=== PATIENT | female | born 1950 | race Caucasian/White ===

== ENCOUNTER 2017-08-06 19:53 | Emergency (ER) | payer MEDICAID ==
[~2017-08-06] VITALS: Ht 160 cm; Wt 111.1 kg
--- NOTE | 2017-08-06 20:00 | NUR ---
TO BED 13 A 66 YO FEMALE PATIENT [id number] "PER FAMILY NEAR SYNCOPE EPISODE." PATIENT IS AAOX3, NAD NOTED. VSS. SKIN WARM AND DRY. PLACED ON CARDIAC AND VS MONITORING. SAFETY MEASURES IN PLACE.
--- NOTE | 2017-08-06 20:25 | NUR ---
started a saline lock on the lac g20, blood drawn and sent to lab.
[2017-08-06 20:28] LABS: BASOPHILS # (AUTO) 0.1 /CMM (0.0-0.2); BASOPHILS % (AUTO) 1.1 % (0.0-2.0); EOSINOPHILS # (AUTO) 0.1 /CMM (0.0-0.7); EOSINOPHILS % (AUTO) 1.2 % (0.0-6.0); HEMATOCRIT 41 % (33-45); HEMOGLOBIN 14.3 g/dL (11.5-14.8); LYMPHOCYTES % (AUTO) 20.3 % (20.0-44.0); MEAN CORPUSCULAR HEMOGLOBIN 31 PG (26.0-33.0); MEAN CORPUSCULAR HGB CONC 35 g/dl (31.0-36.0); MEAN CORPUSCULAR VOLUME 90 fL (82-100); MONOCYTES # (AUTO) 0.6 /CMM (0.1-1.30); MONOCYTES % (AUTO) 6.3 % (2.0-12.0); NEUTROPHILS % (AUTO) 71.1 % (43.0-81.0); PLATELET COUNT (AUTO) 234 /CMM (150-450); RDW COEFFICIENT OF VARIATION 14.3 (11.5-15.0); RED BLOOD CELL COUNT(AUTO) 4.54 MIL/uL (4.0-5.2); WHITE BLOOD COUNT (AUTO) 9.8 K/uL (4.3-11.0)
[2017-08-06 20:43] LABS: CALCIUM, SERUM 9.3 mg/dL (8.5-10.1); CARBON DIOXIDE 31 mmol/L (21-32); CHLORIDE 103 mmol/L (98-107); CREATININE 0.9 mg/dL (0.6-1.3); GLUCOSE 93 mg/dL (74-106); POTASSIUM 3.7 mmol/L (3.5-5.1); SODIUM SERUM 141 mmol/L (136-145); UREA NITROGEN, BLOOD 19 mg/dL (7-18)
[2017-08-06 20:45] LABS: INR 0.95 (0.85-1.15)
[2017-08-06 20:48] LABS: TROPONIN I < 0.017 ng/mL (0.00-0.056)
[2017-08-06 20:52] LABS: ALANINE AMINOTRANSFERASE 20 U/L (12-78); ALBUMIN 3.7 g/dL (3.4-5.0); ALKALINE PHOSPHATASE 51 U/L (46-116); ASPARTATE AMINOTRANSFERASE 17 U/L (15-37); BILIRUBIN,DIRECT 0.1 mg/dL (0.0-0.2); BILIRUBIN,TOTAL 0.4 mg/dL (0.2-1.0); TOTAL PROTEIN, SERUM 7.6 g/dL (6.4-8.2)
--- NOTE | 2017-08-06 21:35 | NUR ---
IV removed. Catheter intact and site benign. Pressure and 4x4 applied to site. No bleeding noted.Patient does not wish to proceed with medical care recommended by Dr. Oliveira. Patient given information related to possible complications, up to and including , which could occur as a result of leaving the hospital at this time. Patient verbalizes understanding of risks involved due to leaving against medical advice. Patient has signed AMA form.
--- NOTE | 2017-08-06 21:36 | NUR ---
Patient left AMA in stable condition. Copy of labs given. Patient verbalizes understanding of instruction. Pt's daughter is driving pt home. Pt left via [place]. vss. nad noted. resp even and unlabored. Pt's daughter is driving pt home.
[2017-08-06 21:41] VITALS: BP 169/95
== END 2017-08-06 21:50 | disposition home or self-care (01) ==
LOC: ER 19:55
DX: R55 Syncope and collapse (principal); E66.9 Obesity, unspecified; G89.29 Other chronic pain; I10 Essential (primary) hypertension; F17.200 Nicotine dependence, unspecified, uncomplicated; Z53.20 Procedure and treatment not carried out because of patient's decision for unspecified reasons
CPT/HCPCS: 36415; 71045-TC; 80048-TC; 80076-TC; 82962-TC; 84484-TC; 85025-TC; 85730-TC; A4606; Z7610

== ENCOUNTER 2017-09-24 11:35 | Emergency (ER) | payer MEDICAID ==
[~2017-09-24] VITALS: Ht 165.1 cm; Wt 127.0 kg
[2017-09-24] MEDS ORDERED: NITROGLYCERIN PACKET 1 GM PACKET ONE (12:02)
[2017-09-24] MEDS ORDERED: ASPIRIN 325 MG TABLET ONE (12:02)
[2017-09-24 12:06] LABS: BASOPHILS % (AUTO) 0.4 % (0.0-2.0); EOSINOPHILS % (AUTO) 0.6 % (0.0-6.0); HEMATOCRIT 43 % (33-45); HEMOGLOBIN 14.2 g/dL (11.5-14.8); LYMPHOCYTES # (AUTO) 1.6 /CMM (0.8-4.8); LYMPHOCYTES % (AUTO) 22.1 % (20.0-44.0); MEAN CORPUSCULAR HGB CONC 33 g/dl (31.0-36.0); MEAN CORPUSCULAR VOLUME 90 fL (82-100); MONOCYTES # (AUTO) 0.5 /CMM (0.1-1.30); MONOCYTES % (AUTO) 7.8 % (2.0-12.0); NEUTROPHILS # (AUTO) 4.9 /CMM (1.8-8.9); NEUTROPHILS % (AUTO) 69.1 % (43.0-81.0); PLATELET COUNT (AUTO) 241 /CMM (150-450); RDW COEFFICIENT OF VARIATION 14.3 (11.5-15.0); RED BLOOD CELL COUNT(AUTO) 4.76 MIL/uL (4.0-5.2)
--- NOTE | 2017-09-24 12:08 | NUR ---
PT REPORTS TO ER C/O CP PRESSURE LIKE, WHICH SHE DESCRIBES "BEATING" AND PALPITATIONS WITH ASSOCIATED DYSPNEA STARTING AT 0200. PAIN WAS SCALED AT 8/10 HOT PATCHER, BUT PT REPORTS MODERATE RELIEF OF PAIN AT THIS TIME SINCE BEING PLACED INTO ER BED. DENIES RESP DISTRESS AT THIS TIME. RESP EVEN UNLABORED. SKIN WARM DRY. IN ER BED 08 ON MONITOR WITH DAUGHTER AT BEDSIDE
[2017-09-24] MEDS: NITROGLYCERIN PACKET 1 GM PACKET TD ONE (12:12)
[2017-09-24] MEDS: ASPIRIN 325 MG TABLET PO ONE (12:12)
[2017-09-24 12:16] LABS: CALCIUM, SERUM 9.1 mg/dL (8.5-10.1); CARBON DIOXIDE 28 mmol/L (21-32); CHLORIDE 105 mmol/L (98-107); CREATININE 0.9 mg/dL (0.6-1.3); GLUCOSE 89 mg/dL (74-106); POTASSIUM 3.9 mmol/L (3.5-5.1); SODIUM SERUM 141 mmol/L (136-145); UREA NITROGEN, BLOOD 12 mg/dL (7-18)
[2017-09-24 12:20] LABS: INR 0.91 (0.85-1.15)
[2017-09-24 12:21] LABS: ALANINE AMINOTRANSFERASE 19 U/L (12-78); ALBUMIN 3.4 g/dL (3.4-5.0); ALKALINE PHOSPHATASE 43 U/L (46-116); ASPARTATE AMINOTRANSFERASE 17 U/L (15-37); BILIRUBIN,DIRECT 0.1 mg/dL (0.0-0.2); BILIRUBIN,TOTAL 0.6 mg/dL (0.2-1.0); TOTAL PROTEIN, SERUM 7.1 g/dL (6.4-8.2)
[2017-09-24 12:24] LABS: TROPONIN I < 0.017 ng/mL (0.00-0.056)
--- NOTE | 2017-09-24 13:18 | NUR ---
RESTING COMFORTABLY AT THIS TIME, NAD NOTED. ALL NEEDS ATTENDED TO. AWAITING BED ASSIGNMENT.
[2017-09-24 14:25] VITALS: BP 18/67
--- NOTE | 2017-09-24 14:30 | NUR ---
Patient does not wish to proceed with medical care recommended by Dr. NAYLOR. Patient given information related to possible complications, up to and including , which could occur as a result of leaving the hospital at this time. Patient verbalizes understanding of risks involved due to leaving against medical advice. Patient has signed AMA form. IV removed. Catheter intact and site benign. Pressure and 4x4 applied to site. No bleeding noted. AMBULATED WITH WALKER FROM ER. DISCHARGED WITH DAUGHTER. GIVEN COPIES OF LABS PER PT REQUEST.
== END 2017-09-24 14:40 | disposition left against medical advice (07) ==
LOC: ER 11:40
DX: R07.89 Other chest pain (principal); Z53.20 Procedure and treatment not carried out because of patient's decision for unspecified reasons; I10 Essential (primary) hypertension; E66.9 Obesity, unspecified; G89.29 Other chronic pain; F17.200 Nicotine dependence, unspecified, uncomplicated; Z98.84 Bariatric surgery status
CPT/HCPCS: 36415; 71045-TC; 80048-TC; 80076-TC; 84484-TC; 85025-TC; 85730-TC; 87081-TC; A4606; Z7610

== ENCOUNTER 2020-12-20 20:32 | Emergency (ER) | payer MEDICARE, OTHER ==
[~2020-12-20] VITALS: Ht 162.6 cm; Wt 146.1 kg
--- NOTE | 2020-12-20 20:36 | NUR ---
pt bibdaughter c/o midsternal pain s/p having an "emotional outburst". Pt aaox4 breathing evenly and unlabored. pt skin warm and dry. MD at bedside. Pt given call light and blanket.
[2020-12-20 21:00] LABS: BASOPHILS # (AUTO) 0.1 K/uL (0.0-0.2); BASOPHILS % (AUTO) 0.7 % (0.0-2.0); EOSINOPHILS % (AUTO) 1.6 % (0.0-6.0); HEMATOCRIT 43 % (33-45); HEMOGLOBIN 13.9 g/dL (11.5-14.8); LYMPHOCYTES # (AUTO) 1.9 K/uL (0.8-4.8); LYMPHOCYTES % (AUTO) 22.8 % (20.0-44.0); MEAN CORPUSCULAR HGB CONC 33 g/dl (31.0-36.0); MEAN CORPUSCULAR VOLUME 92 fL (82-100); MONOCYTES # (AUTO) 0.8 K/uL (0.1-1.30); MONOCYTES % (AUTO) 9.6 % (2.0-12.0); NEUTROPHILS # (AUTO) 5.6 K/uL (1.8-8.9); NEUTROPHILS % (AUTO) 65.3 % (43.0-81.0); PLATELET COUNT (AUTO) 263 K/uL (150-450); RED BLOOD CELL COUNT(AUTO) 4.62 MIL/uL (4.0-5.2); WHITE BLOOD COUNT (AUTO) 8.5 K/uL (4.3-11.0)
--- NOTE | 2020-12-20 21:01 | NUR ---
blood sent to lab
--- NOTE | 2020-12-20 21:10 | NUR ---
xray at bedside
--- NOTE | 2020-12-20 21:21 | NUR ---
Note sabino in EDM - 12/20/20 at 2122 by RHONDA Patient does not wish to proceed with medical care recommended by Dr. Haley. Patient given information related to possible complications, up to and including , which could occur as a result of leaving the hospital at this time. Patient verbalizes understanding of risks involved due to leaving against medical advice. Patient has signed AMA form.
--- NOTE | 2020-12-20 21:21 | NUR ---
Patient does not wish to proceed with medical care recommended by Dr. Haley. Patient given information related to possible complications, up to and including , which could occur as a result of leaving the hospital at this time. Patient verbalizes understanding of risks involved due to leaving against medical advice. Patient has signed AMA form. IV removed. Catheter intact and site benign. Pressure and 4x4 applied to site. No bleeding noted. Pt ambulatory with a steady gait
[2020-12-20 21:23] LABS: CALCIUM, SERUM 8.4 mg/dL (8.5-10.1); CARBON DIOXIDE 29 mmol/L (21-32); CHLORIDE 105 mmol/L (98-107); CREATININE 0.9 mg/dL (0.6-1.3); GLUCOSE 94 mg/dL (74-106); POTASSIUM 3.6 mmol/L (3.5-5.1); SODIUM SERUM 142 mmol/L (136-145); UREA NITROGEN, BLOOD 20 mg/dL (7-18)
[2020-12-20 21:33] VITALS: BP 130/99
== END 2020-12-20 21:21 | disposition left against medical advice (07) ==
LOC: ER 20:40
DX: R07.89 Other chest pain (principal); I48.91 Unspecified atrial fibrillation; I10 Essential (primary) hypertension; F17.200 Nicotine dependence, unspecified, uncomplicated; Z98.890 Other specified postprocedural states
CPT/HCPCS: 36415; 71045-TC; 80048-TC; 84484-TC; 85025-TC

== ENCOUNTER 2023-01-12 22:21 | Inpatient (IN) | payer MEDICARE, OTHER ==
[~2023-01-12] VITALS: Ht 154.9 cm; Wt 158.8 kg
[2023-01-13 00:03] LABS: BASOPHILS % (AUTO) 0.4 % (0.0-2.0); EOSINOPHILS # (AUTO) 0.4 K/uL (0.0-0.7); EOSINOPHILS % (AUTO) 5.7 % (0.0-6.0); HEMATOCRIT 32 % (33-45); HEMOGLOBIN 10.1 g/dL (11.5-14.8); LYMPHOCYTES # (AUTO) 1.4 K/uL (0.8-4.8); LYMPHOCYTES % (AUTO) 20.2 % (20.0-44.0); MEAN CORPUSCULAR HEMOGLOBIN 27 PG (26.0-33.0); MEAN CORPUSCULAR HGB CONC 31 g/dl (31.0-36.0); MEAN CORPUSCULAR VOLUME 88 fL (82-100); MONOCYTES # (AUTO) 0.8 K/uL (0.1-1.30); MONOCYTES % (AUTO) 11.8 % (2.0-12.0); NEUTROPHILS # (AUTO) 4.2 K/uL (1.8-8.9); NEUTROPHILS % (AUTO) 61.9 % (43.0-81.0); PLATELET COUNT (AUTO) 226 K/uL (150-450); RED BLOOD CELL COUNT(AUTO) 3.68 MIL/uL (4.0-5.2); RED CELL DISTRIBUTION WIDTH 16.2 % (11.5-15.0); WHITE BLOOD COUNT (AUTO) 6.8 K/uL (4.3-11.0)
[2023-01-13 00:14] LABS: INR 1.03 (0.91-1.10); PARTIAL THROMBOPLASTIN TIME 28.4 SEC (24.3-34.3); PROTHROMBIN TIME 10.8 SECS (9.2-11.1)
[2023-01-13 00:29] LABS: CALCIUM, SERUM 9.1 mg/dL (8.5-10.1); CARBON DIOXIDE 34 mmol/L (21-32); CHLORIDE 105 mmol/L (98-107); CREATININE 0.8 mg/dL (0.6-1.3); GLUCOSE 91 mg/dL (74-106); POTASSIUM 3.9 mmol/L (3.5-5.1); SODIUM SERUM 142 mmol/L (136-145); UREA NITROGEN, BLOOD 13 mg/dL (7-18)
[2023-01-13 00:41] LABS: ALANINE AMINOTRANSFERASE 20 U/L (12-78); ALBUMIN 3.2 g/dL (3.4-5.0); ALKALINE PHOSPHATASE 75 U/L (46-116); ASPARTATE AMINOTRANSFERASE 17 U/L (15-37); BILIRUBIN,DIRECT 0.2 mg/dL (0.0-0.2); BILIRUBIN,TOTAL 0.7 mg/dL (0.2-1.0); NT-PRO BNP 1086 pg/mL (0-125); TOTAL PROTEIN, SERUM 6.6 g/dL (6.4-8.2)
[2023-01-13] MEDS ORDERED: FUROSEMIDE 40 MG/4 ML VIAL ONE (01:51)
[2023-01-13] MEDS ORDERED: FUROSEMIDE 40 MG/4 ML VIAL IV ONE (02:00)
[2023-01-13 05:36] VITALS: BP 145/75; TEMP 98.9; O2SAT 97
[2023-01-13] MEDS ORDERED: METO25TA6 PO (06:09)
[2023-01-13] MEDS ORDERED: GABA300C PO (06:09)
[2023-01-13] MEDS ORDERED: BUME1TAB8 PO (06:09)
[2023-01-13] MEDS ORDERED: APIX5TAB PO (06:09)
[2023-01-13] MEDS ORDERED: ATOR40TA PO (06:09)
[2023-01-13] MEDS ORDERED: ASPI-1169 PO (06:09)
[2023-01-13] MEDS ORDERED: Z GUARD REMEDY 4 OZ OINT TP PRN (07:00)
[2023-01-13] MEDS ORDERED: MAG HYDROX/AL HYDROX/SIMETH 30 ML UDC PO PRN (07:00)
[2023-01-13] MEDS ORDERED: ENOXAPARIN SODIUM 40 MG/0.4 ML DISP.SYRIN SQ SCH (07:00)
[2023-01-13] MEDS ORDERED: MAGNESIUM HYDROXIDE 30 ML UDC PO PRN (07:00)
[2023-01-13] MEDS ORDERED: ACETAMINOPHEN 325 MG TABLET PO PRN (07:00)
[2023-01-13] MEDS ORDERED: ZOLPIDEM TARTRATE 5 MG TABLET PO PRN (07:00)
[2023-01-13] MEDS ORDERED: ONDANSETRON HCL/PF 4 MG/2 ML VIAL IVP PRN (07:00)
[2023-01-13] MEDS ORDERED: PANTOPRAZOLE 40 MG TABLET.DR PO SCH (07:30)
[2023-01-13 08:00] VITALS: BP 145/97; TEMP 98.3; O2SAT 97
[2023-01-13] MEDS ORDERED: FUROSEMIDE 40 MG/4 ML VIAL IV SCH (09:00)
[2023-01-13] MEDS ORDERED: ASPI-1420 PO (10:35)
[2023-01-13] MEDS ORDERED: METO25TA4 PO (10:35)
[2023-01-13] MEDS ORDERED: FUROSEMIDE 20 MG/2 ML VIAL IV ONE (12:00)
[2023-01-13] MEDS ORDERED: APIXABAN 5 MG TABLET PO SCH (17:00)
== END 2023-01-13 10:10 | disposition left against medical advice (07) | DRG 291 ==
LOC: ER 22:21 → TELE1 01-13 04:37
PROVIDERS: ADMIT Nurse Practitioner Acute Care; ATTEND Nurse Practitioner Acute Care
DX: I11.0 Hypertensive heart disease with heart failure (principal); I50.33 Acute on chronic diastolic (congestive) heart failure; J96.01 Acute respiratory failure with hypoxia; E44.1 Mild protein-calorie malnutrition; Z68.44 Body mass index [BMI] 60.0-69.9, adult; E66.01 Morbid (severe) obesity due to excess calories; E88.09 Other disorders of plasma-protein metabolism, not elsewhere classified; I48.0 Paroxysmal atrial fibrillation; Z79.01 Long term (current) use of anticoagulants; Z95.1 Presence of aortocoronary bypass graft; Z98.84 Bariatric surgery status; Z95.0 Presence of cardiac pacemaker; Z98.890 Other specified postprocedural states; Z86.79 Personal history of other diseases of the circulatory system
CPT/HCPCS: 36415; 71045-TC; 80048-TC; 80076-TC; 83880; 84484-TC; 85025-TC; 85730-TC; G0378; J1650; J1940